=== PATIENT | female | born 1990 | race Caucasian/White ===

== ENCOUNTER 2023-09-30 18:49 | Emergency (ER) | payer BC ==
[2023-09-30 19:01] VITALS: RESP 18; TEMP 98.6; BMI 24.9
[2023-09-30 19:29] VITALS: BP 136/91; PULSE 89
[2023-09-30] MEDS: DEXAMETHASONE SOD PHOSPHATE 10 MG/1 ML VIAL IM ONE (19:53)
[2023-09-30] MEDS ORDERED: TETRACAINE 0.5% OPHTH SOLN 2 ML BOTTLE ONE (19:54)
[2023-09-30] MEDS: TETRACAINE 0.5% HCL 0.6ML DROPPER.BOTTLE OD ONE (20:04)
[2023-09-30] MEDS: FLUORESCEIN NA 1 EA STRIP OD ONE (20:04)
[2023-09-30] MEDS: NAPHAZOLINE/PHENIRAMINE OPHTHALMIC 15 ML BOTTLE OD ONE (20:31)
== END 2023-09-30 20:31 | disposition home or self-care (01) ==
LOC: JERFT 18:49
PROC: 3E023GC Introduction of Other Therapeutic Substance into Muscle, Percutaneous Approach (ICD-10-PCS; principal; 2023-09-30)
DX: H10.11 Acute atopic conjunctivitis, right eye (principal); H11.421 Conjunctival edema, right eye
CPT/HCPCS: 99284-25; J1100